=== PATIENT | female | born 1990 ===

== ENCOUNTER 2022-02-11 14:15 | Outpatient (REF) | payer OTHER, SELFPAY ==
[2022-02-11 16:52] LABS: MANUAL DIFF FLAG NO
[2022-02-11 16:55] LABS: Basophils Percent Auto 0.3 % (0-2); Eosinophils Absolute Auto 0.1 X10*3/uL (0.0-0.4); Hematocrit 39.7 % (37.0-47.0); Hemoglobin 13.2 g/dl (12.0-16.0); Imm Gran Abs Auto 0.03 X10*3/uL (0.00-0.03); Imm Gran Pct Auto 0.3 % (0.0-0.4); Lymphocytes Absolute Auto 2.1 X10*3/uL (1.2-4.9); Lymphocytes Percent Auto 22.7 % (20-40); Mean Corpuscular HGB Conc 33.2 g/dl (31.0-35.0); Mean Corpuscular Hemoglobin 27.6 pg (27.0-33.0); Mean Corpuscular Volume 82.9 fL (80.0-98.0); Mean Platelet Volume 10.6 fL (9.4-12.3); Monocytes Absolute Auto 0.5 X10*3/uL (0.1-1.2); Monocytes Percent Auto 5.6 % (2-11); Neutrophils Absolute Auto 6.6 x10*3/uL (2.0-8.3); Neutrophils Percent Auto 70.1 % (45-73); Platelet Count 238 X10*3/uL (160-400); Red Blood Count 4.79 X10*6/uL (4.20-5.50); White Blood Count 9.4 X10*3/uL (4.8-10.8)
[2022-02-11 17:27] LABS: Troponin-I High Sensitivity < 3.5 ng/L (<3.5-17.0)
[2022-02-11 17:45] LABS: Alanine Aminotransferase 13 U/L (0-31); Albumin Level 3.9 g/dL (3.5-5.0); Alkaline Phosphatase 60 U/L (39-117); Anion Gap 13 (12-20); Aspartate Amino Transferase 12 U/L (5-31); Bilirubin Total 0.2 mg/dL (0.0-1.0); Blood Urea Nitrogen 7 mg/dL (9-16); Calcium 9.4 mg/dL (8.4-10.2); Carbon Dioxide 22 mmol/L (22-29); Chloride 104 mmol/L (96-108); Estimated Glomerular Filt Rate > 60; Glucose Random 93 mg/dL (60-115); Sodium 135 mmol/L (135-145)
[2022-02-11 18:06] LABS: TSH reflex Free T4 0.57 uIU/mL (0.32-4.0); Vitamin D 25-OH Total 24.3 ng/mL (>30)
== END 2022-02-11 14:16 | disposition home or self-care (01) ==
LOC: HO.HMGCLDS 14:15
PROVIDERS: PCP Internal Medicine; Visit Provider Internal Medicine
DX: O99.210 Obesity complicating pregnancy, unspecified trimester (principal); E66.09 Other obesity due to excess calories; O26.899 Other specified pregnancy related conditions, unspecified trimester; R07.89 Other chest pain; Z3A.00 Weeks of gestation of pregnancy not specified; Z76.89 Persons encountering health services in other specified circumstances
CPT/HCPCS: 36415; 80053; 82306; 84443; 84484; 85025

== ENCOUNTER → 2022-02-18 13:38 | Outpatient (REF) | payer OTHER, SELFPAY ==
--- NOTE | 2022-02-18 13:41 | ECG_ITS ---
Hook-up date: 2022-02-18 12:59:00 Duration: 47:09:00 Test Indications: PVC'S Medications: 408520 QRS complexes 4592 Ventricular ectopics which represent 3 % of total QRS comp. * Supraventricular ectopics which represent % of total QRS comp. * Paced QRS complexs which represent % of total QRS comp. VENTRICULAR ECTOPY 4592 Isolated 0 Bigeminal Cycles 0 Couplets 0 Runs 0 Beats in Runs * Beats LONGEST at * BPM at :: -- * Beats FASTEST at * BPM at :: -- SUPRAVENTRICULAR ECTOPY * Isolated * Couplets * Runs * Beats in Runs * Beats LONGEST at * BPM at :: -- * Beats FASTEST at * BPM at :: -- HEART RATES 61 MIN at 02:01:22 2022-02-19 99 AVG 142 MAX at 13:30:56 2022-02-18 LONGEST RR 1.3200 secs at 05:57:51 2022-02-19 S-T LEVELS Channel 1 - 128 mm at 12:59:00 2022-02-18 - 128 mm at 12:59:00 2022-02-18 Channel 2 - 128 mm at 12:59:00 2022-02-18 - 128 mm at 12:59:00 2022-02-18 Channel 3 - 128 mm at 03:21:81 -- - 128 mm at 03:21:81 Basic rhythm Normal sinus rhythm No long pause or profound bradycardia Frequent Sinus tachycardia , 42% of time HR > 100 bpm Frequent Premature ventricular complexes , 3% of total beats Patient did not report any symptoms in the diary Referred By: Abdoul Nam Overread By: FABIAN GILMORE MD
== END ==
LOC: HO.CARD 13:38
PROVIDERS: PCP Internal Medicine; Visit Provider Internal Medicine
DX: I49.3 Ventricular premature depolarization (principal); R07.89 Other chest pain
CPT/HCPCS: 93225; 93226

== ENCOUNTER → 2022-05-14 14:01 | Outpatient (BNVA) | payer OTHER, SELFPAY | PROVIDERS: PCP Internal Medicine; Referring Provider Internal Medicine; Visit Provider Internal Medicine | DX: O99.412 Diseases of the circulatory system complicating pregnancy, second trimester (principal); I49.3 Ventricular premature depolarization; R00.0 Tachycardia, unspecified; R07.89 Other chest pain; Z3A.23 23 weeks gestation of pregnancy | CPT/HCPCS: 93005; 99202 ==

== ENCOUNTER → 2022-05-20 09:33 | Outpatient (REF) | payer OTHER, SELFPAY ==
--- NOTE | 2022-05-20 09:35 | CA_ITS ---
Transthoracic Echocardiogram Patient (Last, First, Middle): Millie Calvin, Gender: Female Date of : 1990 Age: 31 Procedure Date: 05/20/2022 Procedure Type: Transthoracic Echocardiogram Location: OP Height: 154.94 cm Weight: 107.5 kg BSA: 2.03 m2 Heart Rate: bpm BP: 105 / 60 mmHg Timber Setter: TO/VH Referring MD: Ranjeet Landrum MD Pewter Caster: Jer Schmid MD Symptoms: I49.3 - Ventricular premature depolarization Study Quality: Fair ECG Rhythm: Sinus tachycardia with extra beats Conclusions: - Normal study Findings Left Ventricle Normal left ventricular size, thickness, and systolic function. The visually estimated ejection fraction is between 60-65%. Diastolic function is normal for age. Right Ventricle Normal right ventricular cavity size and systolic function. Atria Both atria are normal in size. There is no evidence of interatrial shunt. Aortic Valve Normal aortic valve structure and function. There is no aortic valve stenosis. There is no aortic valve regurgitation. Mitral Valve Normal mitral valve structure and function. There is trace mitral valve regurgitation. There is no mitral valve stenosis. Pulmonic Valve The pulmonic valve is likely normal. There is trace pulmonic valve regurgitation. Tricuspid Valve Normal tricuspid valve structure. There is trace tricuspid valve regurgitation. The right ventricular systolic pressure is normal. The right ventricular systolic pressure is 19 mmHg. Normal right atrial pressure. There is no evidence of pulmonary hypertension. Great Vessels All visible segments of the aorta are normal in size. The pulmonary artery was not well visualized. Venous The inferior vena cava is normal in size and collapses greater than 50% with inspiration. Pericardium/Pleural There is no evidence of pericardial effusion. Prior Study Comparison No prior study available for comparison. Measurements 2D Linear Measurements IVSd: 1.04 0.6-0.9/0.6-1.0 cm LVIDd: 3.90 3.9-5.3/4.2-5.9 cm LVIDd Index: 1.92 2.4-3.2/2.2-3.1 cm/m2 LVIDs: 2.33 2.0-3.6 cm LVPWd: 0.87 0.7-1.1 cm LA Diam: 3.50 2.7-3.8/3.0-4.0 cm LAIDs Index: 1.72 1.5-2.3 cm/m2 LV Mass: 141.96 67-162/88-224 g LV Mass Index: 69.93 43-95/49-115 g/m2 LVOT Diam: 2.00 3.0+(-)1.3 cm 2D Systolic Function EF 4C: 56.80 >55% EF 2C: 55.50 >55% Mitral Valve MV Pk E: 0.69 MV PK A: 0.55 MV Decel Time: 133.00 E/A: 1.20 E'Lateral: 12.10 E'Medial: 8.27 E/E' Med: 8.30 E/E' Lat: 5.70 PHT: 39.00 MVA PHT: 5.64 Decel Labette: 5.16 Aortic Valve AoV Pk Oneal: 1.64 AoV Mn Oneal: 1.15 AoV VTI: 0.29 AoV Pk Grad: 11.00 Aov Mn Grad: 6.00 ELISE Cont.VTI: 1.96 LVOT LVOT Pk Oneal: 0.96 LVOT Mn Oneal: 0.69 LVOT VTI: 0.18 LVOT Pk Grad: 4.00 LVOT Mn Grad: 2.00 LVOT Diam: 2.00 LVOT Area: 3.14 Diastolic Function MV Pk E: 0.69 MV Pk A: 0.55 E/A: 1.20 E'Medial: 8.27 E/E' Med: 8.30 E' Laterial: 12.10 E/E' Lat: 5.70 Right Ventricle TAPSE (mm): 26.00 TVS' Oneal: 13.00 Tricuspid Valve TR Pk Oneal: 2.00 TR Pk Grad: 16.00 RA Press: 3.00 RVSP: 19.00 Great Vessels Aorta Sinus of Valsalva: 2.78 2.0-3.5 cm Ao Asc: 2.60 2.1-3.4 cm Updated in Other Vendor System with Status of Final Jer Schmid MD electronically signed on 05/21/2022 4:30:05 PM with status of Final
== END ==
LOC: HO.CARD 09:33
PROVIDERS: Visit Provider Internal Medicine
DX: R07.89 Other chest pain (principal); R00.0 Tachycardia, unspecified; I49.3 Ventricular premature depolarization
CPT/HCPCS: 93306; Q9957

== ENCOUNTER → 2022-06-25 13:46 | Outpatient (BNVA) | payer OTHER, SELFPAY | PROVIDERS: PCP Internal Medicine; Referring Provider Internal Medicine; Visit Provider Nurse Practitioner Family | DX: O99.419 Diseases of the circulatory system complicating pregnancy, unspecified trimester (principal); R00.0 Tachycardia, unspecified; I49.3 Ventricular premature depolarization | CPT/HCPCS: 99212 ==

== ENCOUNTER 2023-02-23 15:28 | Outpatient (AMB) | payer OTHER, SELFPAY ==
[2023-02-23 15:34] VITALS: BP 108/66; BMI 43.3
--- NOTE | 2023-02-23 15:34 | MHC.PC.OV ---
Vital Signs 02/23/23 15:34 Height 5 ft 2 in Weight 236 lb 8 oz BMI 43.3 BP 108/66 Blood Pressure Location Rt brachial Position Sitting Intake Visit Reasons: annual PE Allergies No Known Allergies Allergy (Verified 02/23/23 15:35) Medication List - Last Reconciled 02/23/23 by Abdoul Nam MD No Known Home Meds Tobacco use date assessed: 02/23/23 Dental Screening Dental Screen Date: 02/23/23 Did you have a dental visit in the last 12 months?: No Did you have a dental problem in the last 6 months where you did not have access to dental care?: No Was dental information given to patient?: No HPI annual PE HPI Details Patient is 32-year-old female came in for physical exam Patient is concerned about soreness she is feeling in her left breast off and on She is requesting a mammogram I explain to the patient the mammogram is usually ordered if we find a lump , the soreness that she is feeling off and on can also be related to hormonal changes due to her menstrual cycle monthly. However I have ordered the mammogram as patient is very concerned. She does not have any family history of breast cancer in first-degree relative however she says that her mother did had a lump removed and then after that she was fine but she does not know if it was benign or cancerous. Patient is morbidly obese with a BMI of 43.3 she has an appointment coming up with the bariatric weight loss program [facility]. I have ordered labs for the patient to be done fasting. Patient speaks Hungarian translation was provided with the help of a staff member. [facility] Family History Mother No problems noted. Father No problems noted. Social History Housing: House Patient Tobacco Use Status: Never used Tobacco e-Cigarette/Vaping Use: Never Used service: No Current occupational status: unemployed Cognitive needs: No Hearing needs: No Vision needs: No Questionnaire PHQ-9 Over the last 2 weeks, how often have you been bothered by any of the following problems? 1. Little interest or pleasure in doing things: not at all 2. Feeling down, depressed, or hopeless: not at all 3. Trouble falling or staying asleep, or sleeping too much: not at all 4. Feeling tired or having little energy: several days 5. Poor appetite or overeating: not at all 6. Feeling bad about yourself - or that you are a failure or have let yourself or your family down: not at all 7. Trouble concentrating on things, such as reading the newspaper or watching television: several days 8. Moving or speaking so slowly that other people could have noticed. Or the opposite - being so fidgety or restless that you have been moving around a lot more than usual: not at all 9. Thoughts that you would be better off or of hurting yourself in some way: not at all Total score: 2 Depression Screening Interpretation: Negative 70442 - PHQ-9 Billing: Yes Source: Developed by Drs. Darrel Addison, Katarina Peguero, Wilber Casillas and colleagues, with an educational aditya from [employer]. Thrive Questionnaire Date Thrive assessed: 02/23/23 I am a: Patient What is your living situation today?: I have a steady place to live Within the past 12 months, did the food you bought not last and you didn't have the money to get more?: Never true Within the past 12 months, did you worry whether your food would run out before you got money to buy more?: Never true Do you have trouble paying for medicines?: No Do you have trouble getting transportation to medical appointments?: No Do you have trouble paying your heating and electricity bill?: No Do you have trouble taking care of your child, family member or friend?: No Do you have trouble with day-to-day activities such as bathing, preparing meals, shopping, managing finances, etc.?: Yes Are you currently unemployed and looking for a job?: Yes Are you interested in more education?: Yes AUDIT C Alcohol Use Questionnaire (AUDIT-C) 1. How often do you have a drink containing alcohol?: Never 3. How often do you have six or more drinks on one occasion?: Never Total Score: 0 Score Reviewed/Action Taken: Yes FABIAN-7 AMB Questionnaire FABIAN-7 Date FABIAN - 7 assessed: 02/23/23 Source: Developed by Drs. Darrel Addison, Wilber Spain and colleagues, with an educational aditya from [employer]. FABIAN-7 Assessment Billing FABIAN-7 Assessment Tool: pt declined-do not bill Review of Systems Const Denies chills, Denies fever(s) and Denies headache(s) Eyes Denies blurry vision ENT Denies headache(s), Denies nasal discharge, Denies nasal obstruction, Denies odynophagia and Denies sinus pain Card Denies chest pain at rest and Denies chest pain with activity Resp Denies cough and Denies hemoptysis GI Denies diarrhea, Denies odynophagia, Denies vomiting and Denies hematemesis Reports as per HPI Musc Denies abnormal gait Skin/Breast Reports as per HPI Neuro Denies Neuro-related abnormal movements, Denies Abnormal speech present, Denies abnormal gait, Denies headache(s) and Denies Sensory deficit (Neuro) Psych Denies mood swings and Denies paranoia Endo Reports as per HPI Xavier/Lymph Reports as per HPI Aller/Immun Reports as per HPI Physical exam (Primary Care) Vital Signs: Last Vital Signs BP 108/66 02/23/23 15:34 BMI result Body Mass Index 43.3 Tobacco/Smoking Status: Tobacco use Status Tobacco use date assessed 02/23/23 02/23/23 15:37 Patient Tobacco Use Status Never used Tobacco 02/23/23 15:37 e-Cigarette/Vaping Use Never Used 02/23/23 15:37 Depression Screening Interpretation: Negative Thrive Assessment: Date of Thrive Assessment Date Thrive assessed 02/23/23 02/23/23 15:58 Const General: cooperative, comfortable and no acute distress Orientation/consciousness: patient oriented x3 HENMT Head: Yes normocephalic and Yes atraumatic Eyes General: appearance normal, both eyes and all related structures Pupils: Equal, round and reactive pupils present EOM: EOMs intact bilaterally Neck Neck: Yes supple and No lymphadenopathy Thyroid: Thyroid normal Lymphatic: no lymphadenopathy noted Chest Breast/axilla palpation: normal palpation of the breasts Resp Effort & Inspection: normal respiratory effort and able to speak in complete sentences Auscultation: clear to auscultation bilaterally Cardio Heart sounds: S1 normal heart sound present and S2 normal heart sound present GI Palpation (GI): Soft to palpation and nontender Auscultation: normal bowel sounds General: Yes no CVA tenderness Back/Spine/Pelvis Back: no CVA tenderness Skin General skin exam: elasticity normal and turgor normal Neuro General: patient oriented x3 and gait normal Cranial nerves: Yes Equal, round and reactive pupils present Speech: No Abnormal speech present Sensory Exam: No Sensory deficit (Neuro) Coordination: tandem gait normal and Romberg test negative Extrem General: Yes normal exam except as noted and No edema Assessment and Plan Assessment & Plan (1) Encounter for general adult medical examination with abnormal findings: Code(s): Z00.01 - Encounter for general adult medical examination with abnormal findings (2) Morbid obesity due to excess calories: Code(s): E66.01 - Morbid (severe) obesity due to excess calories (3) Soreness breast: Code(s): N64.4 - Mastodynia Plan Patient is 32-year-old female came in for physical exam Patient is concerned about soreness she is feeling in her left breast off and on She is requesting a mammogram I explain to the patient the mammogram is usually ordered if we find a lump , the soreness that she is feeling off and on can also be related to hormonal changes due to her menstrual cycle monthly. However I have ordered the mammogram as patient is very concerned. She does not have any family history of breast cancer in first-degree relative however she says that her mother did had a lump removed and then after that she was fine but she does not know if it was benign or cancerous. Patient is morbidly obese with a BMI of 43.3 she has an appointment coming up with the bariatric weight loss program [facility]. I have ordered labs for the patient to be done fasting. Patient speaks Hungarian translation was provided with the help of a staff member. Orders: Orders Comprehensive [place]. Panel Fast Today E66.01 - Morbid (severe) obesity due to excess calories, Z00.01 - Encounter for general adult medical examination with abnormal findings Lipid Panel Today E66.01 - Morbid (severe) obesity due to excess calories, Z00.01 - Encounter for general adult medical examination with abnormal findings TSH reflex Free T4 Today E66.01 - Morbid (severe) obesity due to excess calories, Z00.01 - Encounter for general adult medical examination with abnormal findings Complete Blood Count Auto Diff Today E66.01 - Morbid (severe) obesity due to excess calories, Z00.01 - Encounter for general adult medical examination with abnormal findings MM tomosynthesis screening BI Today N64.4 - Mastodynia MM tomosynthesis diagnostic LT Today N64.4 - Mastodynia Coding Level of Care Code Est Pt Prev Care 18-39y(64230) Diagnoses Encounter for general adult medical examination with abnormal findings Z00.01 Morbid obesity due to excess calories E66.01 Soreness breast N64.4
== END 2023-02-23 15:58 | disposition home or self-care (01) ==
PROVIDERS: PCP Internal Medicine; Visit Provider Internal Medicine
DX: Z00.01 Encounter for general adult medical examination with abnormal findings (principal); E66.01 Morbid (severe) obesity due to excess calories; N64.4 Mastodynia; Z68.41 Body mass index [BMI] 40.0-44.9, adult
CPT/HCPCS: 99395

== ENCOUNTER 2023-03-24 13:01 | Outpatient (REF) | payer OTHER, SELFPAY ==
--- NOTE | ~2023-03-24 | US_ITS ---
EXAMINATION: MM DIAGNOSTIC DIGITAL BREAST TOMOSYNTHESIS, BILATERAL US BREAST LIMITED, LEFT MAMMOGRAPHY: CLINICAL INFORMATION: Mastodynia, left breast pain and soreness, on ofttimes 1 year. Baseline mammography. COMPARISON: Mammography: None. Baseline examination. TECHNIQUE: Digital breast tomosynthesis is performed in both the craniocaudal and mediolateral oblique views along with computer-aided detection (CAD). Synthesized 2D images are generated from the tomosynthesis. FINDINGS: There are scattered areas of fibroglandular density (ACR BI-RADS breast composition Category b). There are no significant masses, abnormal calcifications, or other abnormalities within the right breast. Within the left breast, there is an oval mass in the approximate 2:00 axis, 12 cm from the nipple, which persists on diagnostic views. This will be evaluated by ultrasound. No skin or axillary abnormalities. ULTRASOUND: CLINICAL INFORMATION: Evaluate mass seen 2:00 left breast, 12 cm from the nipple. COMPARISON: No prior ultrasound. Mammogram performed same day. TECHNIQUE: Targeted sonographic evaluation of the LEFT breast was performed using a high frequency linear transducer. Attention was paid to the upper outer quadrant of the left breast. Selected archived documentation. FINDINGS: LEFT BREAST: Within the 2:00 axis of the LEFT breast, 12 cm from the nipple, there is a hypoechoic oval somewhat macro lobular mass, measuring 1.5 x 0.9 x 1.1 cm. It is slightly taller than wide, demonstrates mild posterior acoustic attenuation, and no good through transmission. There is minimal vascularity internally on color Doppler interrogation. The surrounding fat appears mildly echogenic and there is a possibility of minimal parenchymal distortion. Finding is suspicious and ultrasound-guided biopsy recommended. There is otherwise no additional mass, cystic abnormality, abnormal shadowing, or edema within the soft tissue planes. US/US breast LT limited mamm only IMPRESSION: LEFT breast hypoechoic suspicious mass at the 2:00 axis, 12 cm from the nipple, for which ultrasound-guided biopsy is recommended. This measures 1.5 x 0.9 x 1.1 cm. No suspicious finding in the RIGHT breast. Findings and recommendations were discussed with the patient in detail. OVERALL ASSESSMENT: Mammography: BI-RADS 4 - Suspicious finding Ultrasound: BI-RADS 4 - Suspicious finding RECOMMENDATION: Biopsy recommended Results were discussed with the patient at time of visit.
== END 2023-03-24 13:02 | disposition home or self-care (01) ==
LOC: HO.MAMMO 13:01
PROVIDERS: Visit Provider Internal Medicine
DX: N64.4 Mastodynia (principal)
CPT/HCPCS: 76642; 77062; 77066

== ENCOUNTER → 2023-03-24 13:30 | Outpatient (BNV) | payer OTHER, SELFPAY | PROVIDERS: Visit Provider Radiology Diagnostic Radiology | DX: R92.2 Inconclusive mammogram (principal); D24.9 Benign neoplasm of unspecified breast | CPT/HCPCS: 76642; 77062; 77066 ==

== ENCOUNTER 2023-03-26 08:22 | Outpatient (AMB) | payer OTHER, SELFPAY ==
--- NOTE | 2023-03-26 08:25 | MHC.OFFVIS ---
Intake Vital Signs 03/26/23 08:37 Height 5 ft 2 in Weight 229 lb 11.547 oz BMI 42.0 BP 110/70 Blood Pressure Location Lt brachial Position Sitting Intake Visit Reasons: Lt breast US guided bx 3 o'clock Intake Note: Patient is seen in office for ultrasound guided biopsy consult of left breast 3 o'clock. Patient c/o: admits to discomfort on the left breast for a year, couple of weeks ago started experiencing pain Process Automation Engineer Required: Yes Process Automation Engineer Language: School Bus Technician Name: Breanna ONOFRE Information Interpreted: non-clinical & clinical Manager Of Health: Manager Of Health Present Accompanied by: Self / Same As Patient Allergies No Known Allergies Allergy (Verified 03/26/23 08:32) Medication List - Last Reconciled 03/26/23 by Celso Vega MD No Known Home Meds HPI HPI Comments History of Present Illness Details 32-year-old female patient presenting with complaints of pain in the left breast on and off, subsequently underwent a diagnostic mammogram and ultrasound which revealed a density in the left breast at the 3 o'clock position approximately 12 cm from the nipple. This was felt to be highly suspicious for malignancy and biopsy recommended. She is scheduled for an ultrasound-guided core biopsy later today at the [facility]. She denies a previous history of breast problems or breast surgery. Her family history is negative for breast cancer although her mother underwent a biopsy for benign lesion. She is and reports breast-feeding her children. [facility] Surgical History History of tubal ligation (01/2023) Family History Mother No problems noted. Father No problems noted. Social History Housing: House Patient Tobacco Use Status: Never used Tobacco e-Cigarette/Vaping Use: Never Used service: No Current occupational status: unemployed Cognitive needs: No Hearing needs: No Vision needs: No Female Reproductive History Menstrual Age of Menarche: 13 Date of last menstrual period: 03/01/23 Total pregnancies: 2 Review of Systems Const All systems reviewed & are unremarkable except as noted in HPI and below Denies chills, Denies fever(s), Denies headache(s), Denies poor appetite and Denies weakness ENT Denies headache(s) Card Denies chest pain, Denies irregular heart rhythm, Denies palpitations and Denies dyspnea Resp Denies cough, Denies excessive phlegm production and Denies dyspnea GI Denies abdominal pain, Denies bloating, Denies change in bowel habits, Denies constipation, Denies heartburn, Denies diarrhea, Denies nausea and Denies vomiting Denies urinary frequency and Denies nipple discharge Musc Denies back pain, Denies muscle weakness and Denies numbness Skin/Breast Denies breast skin changes, Reports breast pain, Denies breast mass, Denies changing lesions, Denies nipple discharge and Denies unusual bruising Neuro Denies headache(s), Denies numbness, Denies paresthesias and Denies weakness Psych Denies anxiety and Denies depression Endo Denies palpitations Xavier/Lymph Denies lymphadenopathy Physical Exam Const General: cooperative and no acute distress Nutritional Appearance: well nourished Orientation/consciousness: patient oriented x3 Limitations: no limitations HEENT Head: Yes normocephalic and Yes atraumatic Ears: hearing grossly normal bilaterally Chest Other: Left breast: No skin change, no nipple retraction, no nipple discharge, no palpable mass, no enlarged lymph nodes. Right breast: No skin change, no nipple retraction, no nipple discharge, faintly palpable nodule in the 3 o'clock position with increased fibrocystic change surrounding, no enlarged lymph nodes Resp Effort & Inspection: normal respiratory effort, no audible wheezes, no cough and no respiratory distress Cardio Jugular venous distension: no JVD GI Inspection: Yes normal to inspection Skin Other: Warm, dry, no rash Neuro General: patient oriented x3 Extrem General: Yes no clubbing, cyanosis or edema Assessment & Plan Assessment & Plan (1) Abnormal ultrasound of breast: Code(s): R92.8 - Other abnormal and inconclusive findings on diagnostic imaging of breast (2) Abnormal mammogram of left breast: Code(s): R92.8 - Other abnormal and inconclusive findings on diagnostic imaging of breast Plan 32-year-old female patient with complaints of pain in the left breast at the upper outer quadrant found to have an abnormal density in the left breast 3 o'clock position approximately 12 cm from the nipple on both mammogram and ultrasound. This was felt to be high suspicion for malignancy and biopsy recommended. She is scheduled for an ultrasound-guided core biopsy later today at the [facility]. Examination today does reveal a possible palpable mass in the upper outer quadrant to 3 o'clock position. This feels soft and mobile, perhaps a fibroadenoma. There are fibrocystic changes surrounding this in the upper outer quadrant. No palpable lymph nodes are appreciated. I recommended patient return in 1 week to review the pathology results and discuss treatment options. She expressed understanding and agrees with the plan. Orders: Orders US breast ndl core biopsy LT Today R92.8 - Other abnormal and inconclusive findings on diagnostic imaging of breast Coding Level of Care Code New Pt Level 4 (60730) Diagnoses Abnormal ultrasound of breast R92.8 Abnormal mammogram of left breast R92.8
[2023-03-26 08:37] VITALS: BP 110/70; BMI 42.0
== END 2023-03-26 08:57 | disposition home or self-care (01) ==
PROVIDERS: PCP Internal Medicine; Referring Provider Internal Medicine; Visit Provider Surgery
DX: R92.8 Other abnormal and inconclusive findings on diagnostic imaging of breast (principal)
CPT/HCPCS: 99204

== ENCOUNTER 2023-03-26 09:05 | Outpatient (REF) | payer OTHER, SELFPAY ==
--- NOTE | ~2023-03-26 | MM_ITS ---
PROCEDURE: US GUIDED BREAST BIOPSY, LEFT CLINICAL INFORMATION: Left breast mass, 2:00 axis, posterior depth seen on screening exam COMPARISON: Screening mammography 03/24/2023 with left breast ultrasound 03/24/2023. PROCEDURAL DETAILS: The details of the procedure, as well as the risks, benefits, and alternatives to the procedure were explained to the patient in detail and all of her questions were answered, after which written informed consent was obtained. Site and side were confirmed. Prior to the procedure, sonography revealed an oval, tolerated than wide, hypoechoic partially circumscribed mass 2:00 left breast 12 cm from the nipple, without through transmission, no posterior features, and no internal color Doppler signal. Mildly hyperechoic fat surrounding the abnormality. Finding is suspicious and biopsy was recommended. A time-out was performed, the lesion intended for biopsy was sonographically targeted, and the skin of the left breast was then cleansed, prepped and draped in the usual sterile fashion. Using sonographic guidance, sterile technique, and 1% lidocaine without epinephrine for local anesthesia, multiple (4) core biopsies were obtained through the targeted area with a 14G spring loaded Achieve core biopsy device. There was real-time confirmation of appropriate needle passage. Sampling was documented. At the completion of tissue sampling, a single open coil-shaped clip metallic clip was deposited at the biopsy site. There was no evidence of immediate complication. SPECIMEN: An appropriate sample was obtained with 4 core biopsies. DIGITAL POST-PROCEDURE MAMMOGRAPHY: Breast density: The tissue contains scattered areas of fibroglandular density. BI-RADS version 5, category B. There are no new mammographic findings demonstrated. The postprocedure 2-view direct digital mammogram reveals satisfactory and accurate positioning of the biopsy clip. No evidence of complication or hematoma. No evidence of clip migration. The patient tolerated the procedure well and, after assuring adequate hemostasis, was discharged in good condition after reviewing postbiopsy breast care instructions. Final pathology results are pending. MM/MM tomosynthesis diagnostic LT IMPRESSION: 1. No immediate complication from ultrasound-guided percutaneous biopsy left breast. 2. Ultrasound was used to localize and guide marker clip placement. 3. The 2-view direct digital postprocedure mammogram reveals satisfactory and accurate positioning of the biopsy clip. 4. Final pathology results are pending. A separate report with final recommendations will be issued once these results are made available.
== END 2023-03-26 09:06 | disposition home or self-care (01) ==
LOC: HO.MAMMO 09:05
PROVIDERS: PCP Internal Medicine; Visit Provider Surgery
DX: R92.8 Other abnormal and inconclusive findings on diagnostic imaging of breast (principal)
CPT/HCPCS: 19083; 77061; 77063; 77065; 77067; 88305; A4648

== ENCOUNTER → 2023-03-26 10:00 | Outpatient (BNV) | payer OTHER, SELFPAY | PROVIDERS: PCP Internal Medicine; Visit Provider Radiology Diagnostic Radiology | DX: D24.2 Benign neoplasm of left breast (principal) | CPT/HCPCS: 19083; 77065 ==

== ENCOUNTER 2023-04-02 11:15 | Outpatient (AMB) | payer OTHER, SELFPAY ==
[2023-04-02 11:19] VITALS: BP 112/72; BMI 42.3
--- NOTE | 2023-04-02 11:19 | A.OFFVIS_ITS ---
Intake Vital Signs 04/02/23 11:19 Height 5 ft 2 in Weight 231 lb 0.711 oz BMI 42.3 BP 112/72 Blood Pressure Location Lt brachial Position Sitting Intake Visit Reasons: us guided bx results, left breast 3o'clock mass Intake Note: Patient is seen in office for ultrasound guided bx results, left breast mass. Patient c/o: sore and tender Sales Representative Trainee Required: Yes Sales Representative Trainee Language: Pen Rider Name: Breanna ONOFRE Information Interpreted: non-clinical & clinical Extrusion Process Operator: Extrusion Process Operator Present Accompanied by: Self / Same As Patient Allergies No Known Allergies Allergy (Verified 04/02/23 11:25) Medication List - Last Reconciled 04/02/23 by Celso Vega MD No Known Home Meds HPI HPI Comments History of Present Illness Details 32-year-old female patient presenting wi th complaints of pain in the left breast on and off, subsequently underwent a diagnostic mammogram and ultrasound which revealed a density in the left breast at the 3 o'clock position approximately 12 cm from the nipple. This was felt to be highly suspicious for malignancy and biopsy recommended. She was scheduled for an ultrasound-guided core biopsy on 03/26/2023. She tolerated the procedure well and denies any ongoing breast symptoms. 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 A copy of the report was provided to the patient today. [facility] Surgical History History of tubal ligation (01/2023) Family History Mother No problems noted. Father No problems noted. Social History Housing: House Patient Tobacco Use Status: Never used Tobacco e-Cigarette/Vaping Use: Never Used service: No Current occupational status: unemployed Cognitive needs: No Hearing needs: No Vision needs: No Female Reproductive History Menstrual Age of Menarche: 13 Review of Systems Const All systems reviewed & are unremarkable except as noted in HPI and below Denies chills, Denies fever(s), Denies headache(s), Denies poor appetite and Denies weakness ENT Denies headache(s) Card Denies chest pain, Denies irregular heart rhythm, Denies palpitations and Denies dyspnea Resp Denies cough, Denies excessive phlegm production and Denies dyspnea GI Denies abdominal pain, Denies bloating, Denies change in bowel habits, Denies constipation, Denies heartburn, Denies diarrhea, Denies nausea and Denies vomiting Denies urinary frequency and Denies nipple discharge Musc Denies back pain, Denies muscle weakness and Denies numbness Skin/Breast Denies breast skin changes, Reports breast pain, Denies breast mass, Denies changing lesions, Denies nipple discharge and Denies unusual bruising Neuro Denies headache(s), Denies numbness, Denies paresthesias and Denies weakness Psych Denies anxiety and Denies depression Endo Denies palpitations Xavier/Lymph Denies lymphadenopathy Physical Exam Vital Signs: Last Vital Signs BP 112/72 04/02/23 11:19 BMI result Body Mass Index 42.3 Const General: cooperative and no acute distress Nutritional Appearance: well nourished Orientation/consciousness: patient oriented x3 Limitations: no limitations HEENT Head: Yes normocephalic and Yes atraumatic Ears: hearing grossly normal bilaterally Chest Other: Exam deferred Resp Effort & Inspection: normal respiratory effort, no audible wheezes, no cough and no respiratory distress Cardio Jugular venous distension: no JVD GI Inspection: Yes normal to inspection Skin Other: Warm, dry, no rash Neuro General: patient oriented x3 Extrem General: Yes no clubbing, cyanosis or edema Assessment & Plan Assessment & Plan (1) Abnormal ultrasound of breast: Code(s): R92.8 - Other abnormal and inconclusive findings on diagnostic imaging of breast (2) Abnormal mammogram of left breast: Code(s): R92.8 - Other abnormal and inconclusive findings on diagnostic imaging of breast Plan 32-year-old female patient presenting with complaints of left breast pain found on ultrasound and mammogram to have a suspicious density. Returns today following an ultrasound-guided core biopsy of this lesion. Pathology confirmed a fibroadenoma without evidence of atypia or malignancy. She tolerated the procedure well and her wounds are well healed. No further surgical intervention is required at this time. She is welcome to call for any new concerns. Coding Level of Care Code Est Pt Level 3 (18875) Diagnoses Abnormal ultrasound of breast R92.8 Abnormal mammogram of left breast R92.8
== END 2023-04-02 11:27 | disposition home or self-care (01) ==
PROVIDERS: PCP Internal Medicine; Visit Provider Surgery
DX: R92.8 Other abnormal and inconclusive findings on diagnostic imaging of breast (principal)
CPT/HCPCS: 99213

== ENCOUNTER → 2023-04-02 11:15 | Outpatient (BNVA) | payer OTHER, SELFPAY | PROVIDERS: PCP Internal Medicine; Visit Provider Surgery | DX: R92.8 Other abnormal and inconclusive findings on diagnostic imaging of breast (principal) | CPT/HCPCS: 99212 ==

== ENCOUNTER 2024-03-03 10:58 | Outpatient (AMB) | payer OTHER, SELFPAY ==
[2024-03-03 11:00] VITALS: BP 116/68; PULSE 93; O2SAT 99; BMI 43.8
--- NOTE | 2024-03-03 11:00 | A.OFFPC_ITS ---
Vital Signs 03/03/24 11:00 Height 5 ft 2 in Weight 239 lb 8 oz BMI 43.8 BP 116/68 Blood Pressure Location Lt brachial Position Sitting Pulse 93 Pulse Source Pulse Oximeter Pulse Oximetry (%) 99 Oxygen Delivery Method Room Air Intake Visit Reasons: annual PE- NEEDS PHQ9 +THRIVE Allergies No Known Allergies Allergy (Verified 03/03/24 11:03) Medication List - Last Reconciled 03/03/24 by Abdoul Nam MD No Known Home Meds Tobacco use date assessed: 03/03/24 Dental Screening Dental Screen Date: 03/03/24 Did you have a dental visit in the last 12 months?: Yes Did you have a dental problem in the last 6 months where you did not have access to dental care?: No Was dental information given to patient?: Patient has dentist HPI annual PE- NEEDS PHQ9 +THRIVE HPI Details Patient is a 33-year-old female came in for physical exam Patient is complaining of throat irritation off and on for a while There is no fever no chills no cough no postnasal drip Patient is morbidly obese with BMI of 43.8 Currently she is seeing weight loss program [facility] She is waiting for approval for surgery. OBGYN visit was 2 weeks ago at [facility] Lab order placed to be done fasting I am prescribing omeprazole 20 mg to be taken on empty stomach at night We will set up a telemedicine visit in 2 months to see how her throat irritation is with medication. Physical exam 1 year [facility] Surgical History History of tubal ligation (01/2023) Family History Mother No problems noted. Father No problems noted. Social History Housing: House Patient Tobacco Use Status: Never used Tobacco e-Cigarette/Vaping Use: Never Used service: No Current occupational status: unemployed Cognitive needs: No Hearing needs: No Vision needs: No Female Reproductive History Menstrual Age of Menarche: 13 Questionnaire PHQ-9 Over the last 2 weeks, how often have you been bothered by any of the following problems? 1. Little interest or pleasure in doing things: not at all 2. Feeling down, depressed, or hopeless: not at all 3. Trouble falling or staying asleep, or sleeping too much: not at all 4. Feeling tired or having little energy: several days 5. Poor appetite or overeating: several days 6. Feeling bad about yourself - or that you are a failure or have let yourself or your family down: several days 7. Trouble concentrating on things, such as reading the newspaper or watching television: not at all 8. Moving or speaking so slowly that other people could have noticed. Or the opposite - being so fidgety or restless that you have been moving around a lot more than usual: not at all 9. Thoughts that you would be better off or of hurting yourself in some way: not at all Total score: 3 Depression Screening Interpretation: Negative Depression Screening Done: Yes 86662 - PHQ-9 Billing: Yes Source: Developed by Drs. Darrel Addison, Katarina Peguero, Wilber Casillas and colleagues, with an educational aditya from [employer]. Thrive Questionnaire Date Thrive assessed: 03/03/24 I am a: Patient What is your living situation today?: I have a steady place to live Within the past 12 months, did the food you bought not last and you didn't have the money to get more?: Never true Within the past 12 months, did you worry whether your food would run out before you got money to buy more?: Never true Do you have trouble paying for medicines?: No Do you have trouble getting transportation to medical appointments?: No Do you have trouble paying your heating and electricity bill?: No Do you have trouble taking care of your child, family member or friend?: No Do you have trouble with day-to-day activities such as bathing, preparing meals, shopping, managing finances, etc.?: No Are you currently unemployed and looking for a job?: Yes Are you interested in more education?: Yes Please select the resources that you would like help with: Housing/Skilled Nursing, Job search/training and Education Currently or been in a relationship where the following occur: No concerns reported THRIVE Score: 0 AUDIT C Alcohol Use Questionnaire (AUDIT-C) 1. How often do you have a drink containing alcohol?: Monthly or less 2. How many drinks containing alcohol do you have on a typical day when you are drinking?: 1 or 2 3. How often do you have six or more drinks on one occasion?: Never Total Score: 1 Score Reviewed/Action Taken: Yes FABIAN-7 AMB Questionnaire FABIAN-7 Date FABIAN - 7 assessed: 03/03/24 Feeling nervous, anxious, or on edge: 0 = Not at all Not being able to stop or control worryin = Not at all Worrying too much about different things: 0 = Not at all Trouble relaxin = Not at all Being so restless that it is hard to sit still: 0 = Not at all Becoming easily annoyed or irritable: 0 = Not at all Feeling afraid as if something awful might happen: 0 = Not at all Total FABIAN-7 score (0-4 normal; 5-9 mild; 10-14 moderate; 15-21 severe): 0 Source: Developed by Drs. Darrel Addison, Katarina Peguero, Wilber Casillas and colleagues, with an educational aditya from [employer]. FABIAN-7 Assessment Billing FABIAN-7 Assessment Tool: FABIAN-7 Assessment 15144 Review of Systems Const Denies chills, Denies fever(s) and Denies headache(s) Eyes Denies blurry vision ENT Denies headache(s), Denies nasal discharge, Denies nasal obstruction and Denies sinus pain Card Denies chest pain at rest and Denies chest pain with activity Resp Denies cough and Denies hemoptysis GI Denies diarrhea, Denies vomiting and Denies hematemesis Reports as per HPI Musc Denies abnormal gait Skin/Breast Reports as per HPI Neuro Denies Neuro-related abnormal movements, Denies Abnormal speech present, Denies abnormal gait, Denies headache(s) and Denies Sensory deficit (Neuro) Psych Denies mood swings and Denies paranoia Endo Reports as per HPI Xavier/Lymph Reports as per HPI Aller/Immun Reports as per HPI Physical exam (Primary Care) Vital Signs: Last Vital Signs Pulse 93 03/03/24 11:00 BP 116/68 03/03/24 11:00 Pulse Ox 99 03/03/24 11:00 Oxygen Delivery Method Room Air 03/03/24 11:00 BMI result Body Mass Index 43.8 Tobacco/Smoking Status: Tobacco use Status Tobacco use date assessed 03/03/24 03/03/24 11:03 Patient Tobacco Use Status Never used Tobacco 03/03/24 11:00 e-Cigarette/Vaping Use Never Used 03/03/24 11:00 PHQ-9: PHQ-9 Score PHQ-9: Total score 3 03/03/24 11:03 Depression Screening Interpretation: Negative Thrive Assessment: Date of Thrive Assessment Date Thrive assessed 03/03/24 03/03/24 11:03 Currently or been in a relationship where the following occur: No concerns reported Const General: cooperative, comfortable and no acute distress Orientation/consciousness: patient oriented x3 HENMT Head: Yes normocephalic and Yes atraumatic Eyes General: appearance normal, both eyes and all related structures Pupils: Equal, round and reactive pupils present EOM: EOMs intact bilaterally Neck Neck: Yes supple and No lymphadenopathy Thyroid: Thyroid normal Lymphatic: no lymphadenopathy noted Chest Breast/axilla palpation: normal palpation of the breasts Resp Effort & Inspection: normal respiratory effort and able to speak in complete sentences Auscultation: clear to auscultation bilaterally Cardio Heart sounds: S1 normal heart sound present and S2 normal heart sound present GI Palpation (GI): Soft to palpation and nontender Auscultation: normal bowel sounds General: Yes no CVA tenderness Back/Spine/Pelvis Back: no CVA tenderness Skin General skin exam: elasticity normal and turgor normal Neuro General: patient oriented x3 and gait normal Cranial nerves: Yes Equal, round and reactive pupils present Speech: No Abnormal speech present Sensory Exam: No Sensory deficit (Neuro) Coordination: tandem gait normal and Romberg test negative Extrem General: Yes normal exam except as noted and No edema Assessment and Plan Assessment & Plan (1) Encounter for general adult medical examination with abnormal findings: Code(s): Z00.01 - Encounter for general adult medical examination with abnormal findings (2) Throat irritation: Code(s): J39.2 - Other diseases of pharynx (3) Morbid obesity due to excess calories: Code(s): E66.01 - Morbid (severe) obesity due to excess calories Plan Patient is a 33-year-old female came in for physical exam Patient is complaining of throat irritation off and on for a while There is no fever no chills no cough no postnasal drip Patient is morbidly obese with BMI of 43.8 Currently she is seeing weight loss program [facility] She is waiting for approval for surgery. OBGYN visit was 2 weeks ago at [facility] Lab order placed to be done fasting I am prescribing omeprazole 20 mg to be taken on empty stomach at night We will set up a telemedicine visit in 2 months to see how her throat irritation is with medication. Physical exam 1 year Orders: Orders Comprehensive Benld. Panel Fast Today E66.01 - Morbid (severe) obesity due to excess calories, Z00.01 - Encounter for general adult medical examination with abnormal findings Lipid Panel Today E66.01 - Morbid (severe) obesity due to excess calories, Z 00.01 - Encounter for general adult medical examination with abnormal findings Complete Blood Count Auto Diff Today E66.01 - Morbid (severe) obesity due to excess calories, Z00.01 - Encounter for general adult medical examination with abnormal findings TSH reflex Free T4 Today E66.01 - Morbid (severe) obesity due to excess calories, Z00.01 - Encounter for general adult medical examination with abnormal findings Vitamin D 25-OH (D2 and D3) Today E66.01 - Morbid (severe) obesity due to excess calories, Z00.01 - Encounter for general adult medical examination with abnormal findings Medications: New omeprazole Take at night on empty stomach 20 mg PO DAILY 90 caps 0RF Coding Level of Care Code Est Pt Level 3 (17900) Est Pt Prev Care 18-39y(02986) Diagnoses Encounter for general adult medical examination with abnormal findings Z00.01 Throat irritation J39.2 Morbid obesity due to excess calories E66.01 Additional Codes FABIAN-7 Assessment Billing - FABIAN-7 Assessment Tool: FABIAN-7 Assessment 88101 ([id number])
== END 2024-03-03 11:24 | disposition home or self-care (01) ==
PROVIDERS: PCP Internal Medicine; Visit Provider Internal Medicine
DX: Z00.01 Encounter for general adult medical examination with abnormal findings (principal); J39.2 Other diseases of pharynx; E66.01 Morbid (severe) obesity due to excess calories; Z68.41 Body mass index [BMI] 40.0-44.9, adult
CPT/HCPCS: 99213; 99395

== ENCOUNTER 2024-03-17 08:54 | Outpatient (REF) | payer OTHER, SELFPAY ==
[2024-03-17 10:25] LABS: MANUAL DIFF FLAG NO
[2024-03-17 10:35] LABS: Basophils Percent Auto 0.4 % (0-2); Eosinophils Absolute Auto 0.1 X10*3/uL (0.0-0.4); Hematocrit 42.4 % (37.0-47.0); Hemoglobin 13.7 g/dl (12.0-16.0); Imm Gran Abs Auto 0.01 X10*3/uL (0.00-0.03); Imm Gran Pct Auto 0.1 % (0.0-0.4); Lymphocytes Absolute Auto 1.9 X10*3/uL (1.2-4.9); Lymphocytes Percent Auto 28.1 % (20-40); Mean Corpuscular HGB Conc 32.3 g/dl (31.0-35.0); Mean Corpuscular Hemoglobin 26.8 pg (27.0-33.0); Mean Platelet Volume 10.5 fL (9.4-12.3); Monocytes Absolute Auto 0.4 X10*3/uL (0.1-1.2); Monocytes Percent Auto 5.4 % (2-11); Neutrophils Absolute Auto 4.4 x10*3/uL (2.0-8.3); Platelet Count 213 X10*3/uL (160-400); Red Blood Count 5.11 X10*6/uL (4.20-5.50); Red Cell Distribution Width 13.5 % (11.0-16.0); White Blood Count 6.9 X10*3/uL (4.8-10.8)
[2024-03-17 10:58] LABS: Alanine Aminotransferase 15 U/L (0-31); Alkaline Phosphatase 67 U/L (39-117); Anion Gap 10 (12-20); Aspartate Amino Transferase 15 U/L (5-31); Bilirubin Total 0.4 mg/dL (0.0-1.0); Blood Urea Nitrogen 11 mg/dL (9-16); Calcium 9.3 mg/dL (8.4-10.2); Carbon Dioxide 26 mmol/L (22-29); Chloride 107 mmol/L (96-108); Cholesterol 190 mg/dL (<200); Estimated Glomerular Filt Rate > 60; Glucose Fasting 92 mg/dL (60-99); HDL Cholesterol 30 mg/dL (>40); LDL Cholesterol Calculated 120 mg/dL (<100); Potassium 4.4 mmol/L (3.3-5.1); Sodium 139 mmol/L (135-145); Total Protein 7.2 g/dL (6.5-8.0); Triglycerides 204 mg/dL (<150)
[2024-03-17 11:14] LABS: TSH reflex Free T4 1.26 uIU/mL (0.32-4.0)
[2024-03-22 16:44] LABS: Vitamin D 25-OH, D2 <4 ng/mL; Vitamin D 25-OH, D3 23 ng/mL; Vitamin D 25-OH, Total 23 ng/mL (30-100)
== END 2024-03-17 08:55 | disposition home or self-care (01) ==
LOC: HO.HMGCLDS 08:54
PROVIDERS: PCP Internal Medicine; Visit Provider Internal Medicine
DX: Z00.01 Encounter for general adult medical examination with abnormal findings (principal); E66.01 Morbid (severe) obesity due to excess calories
CPT/HCPCS: 36415; 80053; 80061; 82306; 84443; 85025

== ENCOUNTER 2024-05-26 08:54 | Outpatient (AMB) | payer OTHER, SELFPAY ==
[2024-05-26 08:57] VITALS: BP 112/62; PULSE 91; O2SAT 99; BMI 40.0
--- NOTE | 2024-05-26 08:57 | MHC.PC.OV ---
Vital Signs 05/26/24 08:57 Height 5 ft 2 in Weight 218 lb 8 oz BMI 40.0 BP 112/62 Blood Pressure Location Lt brachial Position Sitting Pulse 91 Pulse Source Pulse Oximeter Pulse Oximetry (%) 99 Oxygen Delivery Method Room Air Intake Visit Reasons: 2 months f/up Allergies No Known Allergies Allergy (Verified 05/26/24 08:57) Medication List - Last Reconciled 05/26/24 by Abdoul Nam MD omeprazole 20 mg PO DAILY Tobacco use date assessed: 05/26/24 Dental Screening Dental Screen Date: 05/26/24 Did you have a dental visit in the last 12 months?: Yes Did you have a dental problem in the last 6 months where you did not have access to dental care?: No Was dental information given to patient?: Patient has dentist HPI 2 months f/up HPI Details The patient presents with cough and phlegm, primarily concerned about an upper respiratory tract infection. And also to follow up from previous visit March 03 Problem list: Upper Respiratory Tract Infection - Bariatric Surgery (Post-operative Monitoring) 2 weeks ago - Vitamin D Deficiency - Polycystic Ovarian Syndrome GERD 33-year-old female with a history of polycystic ovarian syndrome (PCOS) and recent bariatric surgery presenting with concerns about an upper respiratory tract infection. The patient reports a cough with green phlegm for two days and no accompanying fever or chills. She was started on omeprazole 20 mg in February when she presented with a chief complaint throat irritation morning upon awakening Patient says that since she started the medication she started feeling better, but then she stopped and symptoms came back Physical examination suggests an upper respiratory tract infection. Additionally, the patient?s laboratory results indicate vitamin D deficiency. The patient is post-bariatric surgery and reports a weight loss of 16 pounds over two weeks. Current dietary intake includes soft and pureed foods as advised by her supervisor webbing. The patient continues to consult with her MAIL CLERK BILLS for PCOS, with symptoms including hair growth chin area, which have persisted. No thyroid dysfunction is indicated as the thyroid function tests returned to normal values. Instructions to patient: Continue antibiotic treatment as prescribed for the respiratory symptoms. - Take vitamin D supplements daily as directed. - Adhere to dietary guidelines focusing on soft foods to facilitate recovery post-bariatric surgery. - Monitor any changes in symptoms and report persistent or worsening conditions. - Schedule a follow-up appointment in three months to monitor ongoing treatment and health status. - Consult your MAIL CLERK BILLS regarding PCOS management and discuss possible ultrasound for ovarian reassessment. Continue omeprazole every night Follow-up 4 months [facility] Surgical History History of tubal ligation (01/2023) Family History Mother No problems noted. Father No problems noted. Social History Housing: House Patient Tobacco Use Status: Never used Tobacco e-Cigarette/Vaping Use: Never Used service: No Current occupational status: unemployed Cognitive needs: No Hearing needs: No Vision needs: No Female Reproductive History Menstrual Age of Menarche: 13 Questionnaire Thrive Questionnaire Date Thrive assessed: 05/26/24 I am a: Patient What is your living situation today?: I have a steady place to live Within the past 12 months, did the food you bought not last and you didn't have the money to get more?: Never true Within the past 12 months, did you worry whether your food would run out before you got money to buy more?: Never true Do you have trouble paying for medicines?: No Do you have trouble getting transportation to medical appointments?: No Do you have trouble paying your heating and electricity bill?: No Do you have trouble taking care of your child, family member or friend?: No Do you have trouble with day-to-day activities such as bathing, preparing meals, shopping, managing finances, etc.?: No Are you currently unemployed and looking for a job?: Yes Are you interested in more education?: Yes Currently or been in a relationship where the following occur: No concerns reported THRIVE Score: 0 AUDIT C Alcohol Use Questionnaire (AUDIT-C) 1. How often do you have a drink containing alcohol?: Monthly or less 2. How many drinks containing alcohol do you have on a typical day when you are drinking?: 1 or 2 3. How often do you have six or more drinks on one occasion?: Never Total Score: 1 Score Reviewed/Action Taken: Yes FABIAN-7 AMB Questionnaire FABIAN-7 Date FABIAN - 7 assessed: 03/03/24 Source: Developed by Drs. Darrel Addison, Katarina Peguero, Wilber Casillas and colleagues, with an educational aditya from [employer]. Review of Systems Const Denies chills and Denies fever(s) ENT Denies epistaxis and Denies nasal discharge Card Denies chest pain Resp Denies hemoptysis GI Denies diarrhea and Denies nausea Skin/Breast Denies rash Neuro Reports no additional complaints Psych Reports no additional complaints Endo Reports no additional complaints Physical exam (Primary Care) Vital Signs: Last Vital Signs Pulse 91 05/26/24 08:57 BP 112/62 05/26/24 08:57 Pulse Ox 99 05/26/24 08:57 Oxygen Delivery Method Room Air 05/26/24 08:57 BMI result Body Mass Index 40.0 Tobacco/Smoking Status: Tobacco use Status Tobacco use date assessed 05/26/24 05/26/24 09:00 Patient Tobacco Use Status Never used Tobacco 05/26/24 09:00 e-Cigarette/Vaping Use Never Used 05/26/24 09:00 Thrive Assessment: Date of Thrive Assessment Date Thrive assessed 05/26/24 05/26/24 09:00 Currently or been in a relationship where the following occur: No concerns reported Const General: cooperative, comfortable and no acute distress Orientation/consciousness: patient oriented x3 HENMT Other: Throat erythema noted without exudate, uvula midline Head: Yes normocephalic Eyes General: appearance normal, both eyes and all related structures Neck Neck: Yes supple Resp Effort & Inspection: normal respiratory effort, no cough and no stridor Cardio Rhythm: regular rhythm Heart sounds: S1 normal heart sound present and S2 normal heart sound present Skin General skin exam: turgor normal Neuro General: patient oriented x3, tone normal and moves all extremities Extrem Right lower extremity: no edema Left lower extremity: no edema Coding Level of Care Code Est Pt Level 4 (60742) Complex EM visit Add On G2211 Diagnoses Upper respiratory tract infection, unspecified type J06.9 URI type: unspecified URI Chronic GERD K21.9 Morbid obesity due to excess calories E66.01 Status post bariatric surgery Z98.84 Polycystic ovarian syndrome E28.2 Hirsutism L68.0 Assessment & Plan Assessment & Plan (1) Upper respiratory infection: Code(s): J06.9 - Acute upper respiratory infection, unspecified Category: Medical Qualifiers: URI type: unspecified URI Qualified Code(s): J06.9 - Acute upper respiratory infection, unspecified (2) Chronic GERD: Code(s): K21.9 - Gastro-esophageal reflux disease without esophagitis Category: Medical (3) Morbid obesity due to excess calories: Code(s): E66.01 - Morbid (severe) obesity due to excess calories Category: Medical (4) Status post bariatric surgery: Code(s): Z98.84 - Bariatric surgery status Category: Surgical (5) Polycystic ovarian syndrome: Code(s): E28.2 - Polycystic ovarian syndrome Category: Medical (6) Hirsutism: Code(s): L68.0 - Hirsutism Category: Medical Plan The patient presents with cough and phlegm, primarily concerned about an upper respiratory tract infection. And also to follow up from previous visit March 03 33-year-old female with a history of polycystic ovarian syndrome (PCOS) and recent bariatric surgery presenting with concerns about an upper respiratory tract infection. The patient reports a cough with green phlegm for two days and no accompanying fever or chills. She was started on omeprazole 20 mg in February when she presented with a chief complaint throat irritation morning upon awakening Patient says that since she started the medication she started feeling better, but then she stopped and symptoms came back Problem list: Upper Respiratory Tract Infection - Bariatric Surgery (Post-operative Monitoring) 2 weeks ago - Vitamin D Deficiency - Polycystic Ovarian Syndrome GERD Physical examination suggests an upper respiratory tract infection. Additionally, the patient?s laboratory results indicate vitamin D deficiency. The patient is post-bariatric surgery and reports a weight loss of 16 pounds over two weeks. Current dietary intake includes soft and pureed foods as advised by her supervisor webbing. The patient continues to consult with her MAIL CLERK [employer]ILLS for PCOS, with symptoms including hair growth chin area, which have persisted. No thyroid dysfunction is indicated as the thyroid function tests returned to normal values. Instructions to patient: Continue antibiotic treatment as prescribed for the respiratory symptoms. - Take vitamin D supplements daily as directed. - Adhere to dietary guidelines focusing on soft foods to facilitate recovery post-bariatric surgery. - Monitor any changes in symptoms and report persistent or worsening conditions. - Schedule a follow-up appointment in three months to monitor ongoing treatment and health status. - Consult your MAIL CLERK BILLS regarding PCOS management and discuss possible ultrasound for ovarian reassessment. Continue omeprazole every night Follow-up 4 months
== END 2024-05-26 09:14 | disposition home or self-care (01) ==
PROVIDERS: PCP Internal Medicine; Visit Provider Internal Medicine
DX: J06.9 Acute upper respiratory infection, unspecified (principal); K21.9 Gastro-esophageal reflux disease without esophagitis; E66.01 Morbid (severe) obesity due to excess calories; Z68.41 Body mass index [BMI] 40.0-44.9, adult; Z98.84 Bariatric surgery status; E28.2 Polycystic ovarian syndrome; L68.0 Hirsutism

== ENCOUNTER → 2024-05-26 08:54 | Outpatient (BNVA) | payer OTHER, SELFPAY | PROVIDERS: PCP Internal Medicine; Visit Provider Internal Medicine | DX: J06.9 Acute upper respiratory infection, unspecified (principal); K21.9 Gastro-esophageal reflux disease without esophagitis; E66.01 Morbid (severe) obesity due to excess calories; Z68.41 Body mass index [BMI] 40.0-44.9, adult; E28.2 Polycystic ovarian syndrome; L68.0 Hirsutism; Z98.84 Bariatric surgery status; Z71.3 Dietary counseling and surveillance | CPT/HCPCS: 99212 ==

== ENCOUNTER 2024-10-13 09:16 | Outpatient (AMB) | payer OTHER, SELFPAY ==
[2024-10-13 09:22] VITALS: BP 106/84; PULSE 84; RESP 18; O2SAT 99; BMI 34.6
--- NOTE | 2024-10-13 09:22 | MHC.PC.OV ---
Vital Signs 10/13/24 09:22 Height 5 ft 3 in Weight 195 lb 2 oz BMI 34.6 BP 106/84 Blood Pressure Location Lt brachial Position Sitting Respiration 18 Pulse 84 Pulse Source Pulse Oximeter Pulse Oximetry (%) 99 Oxygen Delivery Method Room Air Intake Visit Reasons: 3 Months follow up Allergies No Known Allergies Allergy (Verified 05/26/24 08:57) Medication List - Last Reconciled 10/13/24 by Abdoul Nam MD cholecalciferol (vitamin D3) 25 mcg PO DAILY 90 days omeprazole 20 mg PO DAILY Tobacco use date assessed: 05/26/24 Dental Screening Dental Screen Date: 05/26/24 HPI 3 Months follow up HPI Details History - The patient is a 33-year-old female presenting with symptoms related to viral upper respiratory infection. - Over the past week, the patient experienced symptoms indicative of a viral upper respiratory infection, characterized by a nocturnal dry cough and throat irritation. - The cough is described as improving gradually without the use of cough medication. - The patient has a history of GERD for which she is taking omeprazole daily. She occasionally forgets her dosage but reports only minor throat discomfort without significant reflux or heartburn recurrence. - She feels better as the week progresses, indicating recovery. Problem List - Gastroesophageal Reflux Disease (GERD) - Viral Upper Respiratory Infection Patient Instructions - Continue taking omeprazole once a day. - Take the prescribed cough medicine, tell some [id number]-[id number] one teaspoon at night, and a second dose 12 hours later if needed. - Ensure omeprazole is taken on an empty stomach for optimal efficacy. - Monitor symptoms; if GERD symptoms are well-controlled, consider trial cessation of omeprazole after discussion. Review of Systems - General: No fever no chills - Neurological: No headaches no dizziness - Ear nose throat: No sore throat no hearing difficulty no ear pain - Cardiovascular: No syncope, no chest pain, no palpitations - Gastrointestinal: No nausea vomiting or diarrhea - Endocrine: No polyuria polydipsia no heat intolerance - Genitourinary: No dysuria , no blood in urine Physical Exam General: No acute distress HEENT: no acute findings Neck: Supple Respiratory system: Able to talk in full sentences, no audible wheeze Cardiovascular: S1-S2 regular in rate and rhythm Gastrointestinal: No pain Extremities: No new findings 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 Father No problems noted. Social History Housing: House Patient Tobacco Use Status: Never used Tobacco e-Cigarette/Vaping Use: Never Used service: No Current occupational status: unemployed Cognitive needs: No Hearing needs: No Vision needs: No Female Reproductive History Menstrual Age of Menarche: 13 Questionnaire PHQ-9 Over the last 2 weeks, how often have you been bothered by any of the following problems? 1. Little interest or pleasure in doing things: not at all 2. Feeling down, depressed, or hopeless: not at all 3. Trouble falling or staying asleep, or sleeping too much: not at all 4. Feeling tired or having little energy: not at all 5. Poor appetite or overeating: not at all 6. Feeling bad about yourself - or that you are a failure or have let yourself or your family down: not at all 7. Trouble concentrating on things, such as reading the newspaper or watching television: not at all 8. Moving or speaking so slowly that other people could have noticed. Or the opposite - being so fidgety or restless that you have been moving around a lot more than usual: not at all 9. Thoughts that you would be better off or of hurting yourself in some way: not at all Total score: 0 Depression Screening Interpretation: Negative Depression Screening Done: Yes 24019 - PHQ-9 Billing: Yes Source: Developed by Drs. Darrel Addison, Katarina Peguero, Wilber Casillas and colleagues, with an educational aditya from [employer]. Thrive Questionnaire Date Thrive assessed: 05/26/24 I am a: Patient What is your living situation today?: I have a steady place to live Within the past 12 months, did the food you bought not last and you didn't have the money to get more?: Never true Within the past 12 months, did you worry whether your food would run out before you got money to buy more?: Never true Do you have trouble paying for medicines?: No Do you have trouble getting transportation to medical appointments?: No Do you have trouble paying your heating and electricity bill?: No Do you have trouble taking care of your child, family member or friend?: No Do you have trouble with day-to-day activities such as bathing, preparing meals, shopping, managing finances, etc.?: No Are you currently unemployed and looking for a job?: No Are you interested in more education?: No Please select the resources that you would like help with: None Currently or been in a relationship where the following occur: No concerns reported THRIVE Score: 0 AUDIT C Alcohol Use Questionnaire (AUDIT-C) 1. How often do you have a drink containing alcohol?: Never Total Score: 0 FABIAN-7 AMB Questionnaire FABIAN-7 Date FABIAN - 7 assessed: 03/03/24 Feeling nervous, anxious, or on edge: 0 = Not at all Not being able to stop or control worryin = Not at all Worrying too much about different things: 0 = Not at all Trouble relaxin = Not at all Being so restless that it is hard to sit still: 0 = Not at all Becoming easily annoyed or irritable: 0 = Not at all Feeling afraid as if something awful might happen: 0 = Not at all Total FABIAN-7 score (0-4 normal; 5-9 mild; 10-14 moderate; 15-21 severe): 0 Source: Developed by Drs. Darrel Addison, Katarina Peguero, Wilber Casillas and colleagues, with an educational aditya from [employer]. Physical exam (Primary Care) Vital Signs: Last Vital Signs Pulse 84 10/13/24 09:22 Resp 18 10/13/24 09:22 BP 106/84 10/13/24 09:22 Pulse Ox 99 10/13/24 09:22 Oxygen Delivery Method Room Air 10/13/24 09:22 BMI result Body Mass Index 34.6 Tobacco/Smoking Status: Tobacco use Status Tobacco use date assessed 05/26/24 10/13/24 09:26 Patient Tobacco Use Status Never used Tobacco 10/13/24 09:26 e-Cigarette/Vaping Use Never Used 10/13/24 09:26 PHQ-9: PHQ-9 Score PHQ-9: Total score 0 10/13/24 09:26 Depression Screening Interpretation: Negative Thrive Assessment: Date of Thrive Assessment Date Thrive assessed 05/26/24 10/13/24 09:26 Currently or been in a relationship where the following occur: No concerns reported Coding Level of Care Code Est Pt Level 3 (22455) Diagnoses Chronic GERD K21.9 Dry cough R05.8 Additional Codes PHQ-9 - 55751 - PHQ-9 Billing: Yes ([id number]) Assessment & Plan Assessment & Plan (1) Chronic GERD: Code(s): K21.9 - Gastro-esophageal reflux disease without esophagitis Category: Medical (2) Dry cough: Code(s): R05.8 - Other specified cough Category: Medical Plan History - The patient is a 33-year-old female presenting with symptoms related to viral upper respiratory infection. - Over the past week, the patient experienced symptoms indicative of a viral upper respiratory infection, characterized by a nocturnal dry cough and throat irritation. - The cough is described as improving gradually without the use of cough medication. - The patient has a history of GERD for which she is taking omeprazole daily. She occasionally forgets her dosage but reports only minor throat discomfort without significant reflux or heartburn recurrence. - She feels better as the week progresses, indicating recovery. Problem List - Gastroesophageal Reflux Disease (GERD) - Viral Upper Respiratory Infection Patient Instructions - Continue taking omeprazole once a day. - Take the prescribed cough medicine, tell some rwnu-boz-hqydwmz one teaspoon at night, and a second dose 12 hours later if needed. - Ensure omeprazole is taken on an empty stomach for optimal efficacy. - Monitor symptoms; if GERD symptoms are well-controlled, consider trial cessation of omeprazole after discussion.
--- OUTSIDE RECORDS SUMMARY | 2024-10-13 09:37 | XMS_ITS | Clinical Summary ---
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 Name Role Phone Unavailable Primary Care Provider Unavailabl e Social History Tobacco Use Types Packs/Day Years Used Date Smoking Tobacco: Never Assessed Comments Unknown Sex and Gender Information Value Date Recorded Sex Assigned at Not on file Legal Sex Female 8:25 AM EST Gender Identity Not on file Sexual Orientation Not on file Plan of Treatment Health Maintenance Due Date Last Done Comments DTaP,Tdap,and Td Vaccines (1 - Tdap) 12/14/2010 Hepatitis B Vaccines (1 of 3 - 19+ 3-dose series) 12/14/2010 Cervical Cancer Screening: P ap Smear 12/14/2012 Depression Screening 06/07/2022 HIV Screening 06/07/2022 Hepatitis C Screening 06/07/2022 Social Influencers of Health Screening 06/07/2022 COVID-19 Vaccine ( - 2023-2 5 season) 2024 Influenza Vaccine (Season Ended) 2025 HIB Vaccines Aged Out No longer eligi ble based on patient's age to complete this topic HPV Vaccines Aged Out No longer eligi ble based on patient's age to complete this topic Hepatitis A Vaccines Aged Out No long er eligible based on patient's age to complete this topic IPV Vaccines Aged Out No longer eligi ble based on patient's age to complete this topic MMR Vaccines Aged Out No longer eligi ble based on patient's age to complete this topic Meningococcal ACWY Vaccine Aged Out N o longer eligible based on patient's age to complete this topic Meningococcal B Vaccine Aged Out No l onger eligible based on patient's age to complete this topic Pneumococcal Vaccine: Pediat rics (0 to 5 Years) and At-Risk Patients (6 to 64 Years) Aged Out No longer eligible b ased on patient's age to complete this topic RSV Immunization Patients Un deep 20 months Aged Out No longer eligible b ased on patient's age to complete this topic Varicella Vaccines Aged Out No longer eligible based on patient's age to complete this topic
== END 2024-10-13 10:40 | disposition home or self-care (01) ==
LOC: HO.HMCC 09:16
PROVIDERS: PCP Internal Medicine; Visit Provider Internal Medicine
DX: K21.9 Gastro-esophageal reflux disease without esophagitis (principal); R05.8 Other specified cough

== ENCOUNTER → 2024-10-13 09:16 | Outpatient (BNVA) | payer OTHER, SELFPAY | PROVIDERS: PCP Internal Medicine; Visit Provider Internal Medicine | DX: K21.9 Gastro-esophageal reflux disease without esophagitis (principal); R05.8 Other specified cough | CPT/HCPCS: 96127; 99212 ==

== ENCOUNTER 2025-03-09 13:13 | Outpatient (AMB) | payer OTHER, SELFPAY ==
[2025-03-09 13:20] VITALS: BP 110/64; PULSE 81; O2SAT 99; BMI 33.5
--- NOTE | 2025-03-09 13:20 | A.OFFPC_ITS ---
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 Required: No Allergies No Known Allergies Allergy (Verified 03/09/25 13:20) Medication List - Last Reconciled 03/09/25 by Abdoul Nam MD cholecalciferol (vitamin D3) 25 mcg PO DAILY 90 days omeprazole 20 mg PO DAILY Tobacco use date assessed: 03/09/25 Dental Screening Dental Screen Date: 03/09/25 Did you have a dental visit in the last 12 months?: Yes Did you have a dental problem in the last 6 months where you did not have access to dental care?: No Was dental information given to patient?: Patient has dentist HPI annual visit HPI Details History of Present Illness The patient is a 34-year-old female presenting with breast pain and for an annual physical examination. Breast pain: - She previously had a biopsy in 2022 in dicating a lump, but reports no significant changes. - Pain is noted as coming and going. - No lumps detected by the patient [facility], indicating pain localized but not associated with any palpable mass. Heartburn: - Chronic condition for which the patien t has been prescribed omeprazole. - Heartburn symptoms occasionally exacer bated by diet, particularly with the consumption of coffee. . Low vitamin D levels: - Previously low vitamin D levels noted in test results from last year. - The patient has been advised to contin ue supplementation. Health Maintenance - Discussion of continued use of vitamin D supplements due to previous low levels. - Tetanus vaccination discussed with rec ommendation to obtain an upcoming tetanus booster from the pharmacy. - OBGYN at [facility] visit s up-to-date Patient Instructions - Continue taking vitamin D supplements as previously advised. - Follow up for blood tests requiring fa sting; do not eat for 10 hours prior. - Acquire tetanus booster from the pharm acy as discussed. - Monitor diet-related symptoms, noting occurrences and associated foods. Follow-up 1 year Review of Systems - General: No fever no chills - Neurological: No headaches no dizzin ess - Ear nose throat: No sore throat no hearing difficulty no ear pain - Cardiovascular: No syncope, no chest pain, no palpitations - Gastrointestinal: No nausea vomiting or diarrhea - Endocrine: No polyuria polydipsia no heat intolerance - Genitourinary: No dysuria - Skin: No new complaints Physical Exam General: Cooperative, healthy appearing, comfortable, no acute distress Orientation: Patient oriented x3 Limitations: None Head: Normal to inspection Ears: Within normal limit visually Nose: Normal external nose present Face and sinus: Normal facial exam Eyes: Appearance normal, extraocular movement intact pupils reactive Neck: Normal visual inspection and supple Respiratory: Normal respiratory effort and able to speak in complete sentences. Clear to auscultation, no stridor Cardiovascular: S1 and S2 RRR Breast exam benign, no pain with examination GI: Normal to inspection. Soft to palpation and nontender Skin: Turgor normal, no acute findings Neuro: Patient oriented x3, motor sensory intact, balance intact, tandem pass Extremities: Normal to inspection, full range of motion [facility] History History of tubal ligation (01/2023) Family History Mother No problems noted. Father No problems noted. Social History Housing: House Patient Tobacco Use Status: Never used Tobacco e-Cigarette/Vaping Use: Never Used service: No Current occupational status: unemployed Cognitive needs: No Hearing needs: No Vision needs: No Female Reproductive History Menstrual Age of Menarche: 13 Questionnaire Thrive Questionnaire Date Thrive assessed: 10/13/24 I am a: Patient What is your living situation today?: I have a steady place to live Within the past 12 months, did the food you bought not last and you didn't have the money to get more?: Never true Within the past 12 months, did you worry whether your food would run out before you got money to buy more?: Never true Do you have trouble paying for medicines?: No Do you have trouble getting transportation to medical appointments?: No Do you have trouble paying your heating and electricity bill?: No Do you have trouble taking care of your child, family member or friend?: No Do you have trouble with day-to-day activities such as bathing, preparing meals, shopping, managing finances, etc.?: No Are you currently unemployed and looking for a job?: No Are you interested in more education?: No Please select the resources that you would like help with: None Currently or been in a relationship where the following occur: No concerns reported THRIVE Score: 0 FABIAN-7 AMB Questionnaire FABIAN-7 Date FABIAN - 7 assessed: 03/09/25 Feeling nervous, anxious, or on edge: 0 = Not at all Not being able to stop or control worryin = Not at all Worrying too much about different things: 0 = Not at all Trouble relaxin = Not at all Being so restless that it is hard to sit still: 0 = Not at all Becoming easily annoyed or irritable: 0 = Not at all Feeling afraid as if something awful might happen: 0 = Not at all Total FABIAN-7 score (0-4 normal; 5-9 mild; 10-14 moderate; 15-21 severe): 0 Source: Developed by Drs. Darrel Addison, Katarina Peguero, Wilber Casillas and colleagues, with an educational aditya from [employer]. FABIAN-7 Assessment Billing FABIAN-7 Assessment Tool: FABIAN-7 Assessment 20531 Physical exam (Primary Care) Vital Signs: Last Vital Signs Pulse 81 03/09/25 13:20 BP 110/64 03/09/25 13:20 Pulse Ox 99 03/09/25 13:20 BMI result Body Mass Index 33.5 Tobacco/Smoking Status: Tobacco use Status Tobacco use date assessed 03/09/25 03/09/25 13:20 Patient Tobacco Use Status Never used Tobacco 03/09/25 13:20 e-Cigarette/Vaping Use Never Used 03/09/25 13:20 Thrive Assessment: Date of Thrive Assessment Date Thrive assessed 10/13/24 03/09/25 13:20 Currently or been in a relationship where the following occur: No concerns reported Coding Level of Care Code Est Pt Level 3 (43224) Est Pt Prev Care 18-39y(39772) Diagnoses Encounter for general adult medical examination with abnormal findings Z00.01 Chronic GERD K21.9 Breast pain, left N64.4 Class 1 obesity due to excess calories without serious comorbidity with body mass index (BMI) of 33.0 to 33.9 in adult E66.811; E66.09; Z68.33 Obesity classification: adult class 1 (BMI 30 - 34.9) Serious obesity comorbidity presence: without serious comorbidity Body mass index: BMI 33.0-33.9 Vitamin D deficiency E55.9 Additional Codes FABIAN-7 Assessment Billing - FABIAN-7 Assessment Tool: FABIAN-7 Assessment 84966 ([id number]) Assessment & Plan Assessment & Plan (1) Encounter for general adult medical examination with abnormal findings: Code(s): Z00.01 - Encounter for general adult medical examination with abnormal findings Category: Medical (2) Chronic GERD: Code(s): K21.9 - Gastro-esophageal reflux disease without esophagitis Category: Medical (3) Breast pain, left: Code(s): N64.4 - Mastodynia Category: Medical (4) Obesity due to excess calories: Code(s): E66.09 - Other obesity due to excess calories Category: Medical Qualifiers: Obesity classification: adult class 1 (BMI 30 - 34.9) Serious obesity comorbidity presence: without serious comorbidity Body mass index: BMI 33.0- 33.9 Qualified Code(s): E66.811 - Obesity, class 1; E66.09 - Other obesity due to excess calories; Z68.33 - Body mass index [BMI] 33.0-33.9, adult (5) Vitamin D deficiency: Code(s): E55.9 - Vitamin D deficiency, unspecified Category: Medical Plan History of Present Illness The patient is a 34-year-old female presenting with breast pain and for an annual physical examination. Breast pain: - She previously had a biopsy in 2022 indicating a lump, but reports no significant changes. - Pain is noted as coming and going. - No lumps detected by the patient currently, indicating pain localized but not associated with any palpable mass. Heartburn: - Chronic condition for which the patient has been prescribed omeprazole. - Heartburn symptoms occasionally exacerbated by diet, particularly with the consumption of coffee. . Low vitamin D levels: - Previously low vitamin D levels noted in test results from last year. - The patient has been advised to continue supplementation. Health Maintenance - Discussion of continued use of vitamin D supplements due to previous low levels. - Tetanus vaccination discussed with recommendation to obtain an upcoming tetanus booster from the pharmacy. - OBGYN at [facility] visits up-to-date Patient Instructions - Continue taking vitamin D supplements as previously advised. - Follow up for blood tests requiring fasting; do not eat for 10 hours prior. - Acquire tetanus booster from the pharmacy as discussed. - Monitor diet-related symptoms, noting occurrences and associated foods. Follow-up 1 year Orders: Orders Complete Blood Count Auto Diff Today E55.9 - Vitamin D deficiency, unspecified, E66.09 - Other obesity due to excess calories, E66.811 - Obesity, class 1, K21.9 - Gastro-esophageal reflux disease without esophagitis, N64.4 - Mastodynia, Z00.01 - Encounter for general adult medical examination with abnormal findings, Z68.33 - Body mass index [BMI] 33.0-33.9, adult Comprehensive [place]. Panel Fast Today E55.9 - Vitamin D deficiency, unspecified, E66.09 - Other obesity due to excess calories, E66.811 - Obesity, class 1, K21.9 - Gastro-esophageal reflux disease without esophagitis, N64.4 - Mastodynia, Z00.01 - Encounter for general adult medical examination with abnormal findings, Z68.33 - Body mass index [BMI] 33.0-33.9, adult Lipid Panel Today E55.9 - Vitamin D deficiency, unspecified, E66.09 - Other obesity due to excess calories, E66.811 - Obesity, class 1, K21.9 - Gastro- esophageal reflux disease without esophagitis, N64.4 - Mastodynia, Z00.01 - Encounter for general adult medical examination with abnormal findings, Z68.33 - Body mass index [BMI] 33.0-33.9, adult TSH reflex Free T4 Today E55.9 - Vitamin D deficiency, unspecified, E66.09 - Other obesity due to excess calories, E66.811 - Obesity, class 1, K21.9 - Gastro-esophageal reflux disease without esophagitis, N64.4 - Mastodynia, Z00.01 - Encounter for general adult medical examination with abnormal findings, Z68.33 - Body mass index [BMI] 33.0-33.9, adult Vitamin D 25-OH (D2 and D3) Today E55.9 - Vitamin D deficiency, unspecified, E66.09 - Other obesity due to excess calories, E66.811 - Obesity, class 1, K21.9 - Gastro-esophageal reflux disease without esophagitis, N64.4 - Mastodynia, Z00.01 - Encounter for general adult medical examination with abnormal findings, Z68.33 - Body mass index [BMI] 33.0-33.9, adult Medications: New cholecalciferol (vitamin D3) 25 mcg PO DAILY 90 caps 1RF 90 days
--- OUTSIDE RECORDS SUMMARY | 2025-03-09 13:27 | XMS_ITS | Clinical Summary ---
Author Organization [facility] Address [address] [place] [address] Care Team Providers Care Analyst Programmer Name Role Phone Unavailable Primary Care Provider [...] Screening: P ap Smear 12/14/2012 Depression Screening 07/05/2024 COVID-19 Vaccine ( - 2023-2 5 season) 2025 Influenza Vaccine (#1) 2025 HIB Vaccines Aged Out No longer [...] 5 Years) and At-Risk Patients (6 to 49 Years) Aged Out No longer eligible b ased on patient's age to complete this topic RSV Immunization Patients Un deep 20 months Aged Out No longer eligible b ased on patient's age to complete this topic Varicella Vaccines Aged Out No longer eligible based on patient's age to complete this topic
== END 2025-03-09 13:44 | disposition home or self-care (01) ==
LOC: HO.HMCC 13:14
PROVIDERS: PCP Internal Medicine; Visit Provider Internal Medicine
DX: Z00.01 Encounter for general adult medical examination with abnormal findings (principal); K21.9 Gastro-esophageal reflux disease without esophagitis; E66.811 Obesity, class 1; Z68.33 Body mass index [BMI] 33.0-33.9, adult; N64.4 Mastodynia; E66.09 Other obesity due to excess calories; E55.9 Vitamin D deficiency, unspecified

== ENCOUNTER → 2025-03-09 13:13 | Outpatient (BNVA) | payer OTHER, SELFPAY | PROVIDERS: PCP Internal Medicine; Visit Provider Internal Medicine | DX: Z00.01 Encounter for general adult medical examination with abnormal findings (principal); R12 Heartburn; E55.9 Vitamin D deficiency, unspecified; K21.9 Gastro-esophageal reflux disease without esophagitis; N64.4 Mastodynia; E66.811 Obesity, class 1; Z68.33 Body mass index [BMI] 33.0-33.9, adult | CPT/HCPCS: 96127; 99212; 99395 ==

== ENCOUNTER 2025-03-22 08:39 | Outpatient (REF) | payer OTHER, SELFPAY ==
--- OUTSIDE RECORDS SUMMARY | 2025-03-22 09:54 | XMS_ITS | Clinical Summary ---
Author Organization [facility] Address [address] [place] [address] Care Team Providers Care Emergency Medical Tech Name Role Phone Unavailable Primary Care Provider [...]
[2025-03-22 10:14] LABS: MANUAL DIFF FLAG NO
[2025-03-22 10:24] LABS: Hematocrit 44.4 % (37.0-47.0); Hemoglobin 14.5 g/dl (12.0-16.0); Imm Gran Abs Auto 0.01 X10*3/uL (0.00-0.03); Imm Gran Pct Auto 0.2 % (0.0-0.4); Lymphocytes Absolute Auto 2.3 X10*3/uL (1.2-4.9); Mean Corpuscular HGB Conc 32.7 g/dl (31.0-35.0); Mean Corpuscular Hemoglobin 28.0 pg (27.0-33.0); Mean Corpuscular Volume 85.7 fL (80.0-98.0); NRBC Abs Auto 0.000 X10*3/uL (0.0-0.012); NRBC Pct Auto 0.0 /100WBC (0.0-0.2); Platelet Count 233 X10*3/uL (160-400); Red Blood Count 5.18 X10*6/uL (4.20-5.50); White Blood Count 6.6 X10*3/uL (4.8-10.8)
[2025-03-22 10:53] LABS: Alanine Aminotransferase 19 U/L (0-31); Albumin Level 4.3 g/dL (3.5-5.0); Alkaline Phosphatase 54 U/L (39-117); Anion Gap 8 (12-20); Aspartate Amino Transferase 22 U/L (5-31); Blood Urea Nitrogen 14 mg/dL (9-16); Calcium 9.1 mg/dL (8.4-10.2); Carbon Dioxide 27 mmol/L (22-29); Chloride 109 mmol/L (96-108); Cholesterol 187 mg/dL (<200); Estimated Glomerular Filt Rate > 60; HDL Cholesterol 37 mg/dL (>40); Potassium 4.8 mmol/L (3.3-5.1); Sodium 139 mmol/L (135-145); Total Protein 7.3 g/dL (6.5-8.0); Triglycerides 114 mg/dL (<150)
[2025-03-30 14:47] LABS: Vitamin D 25-OH, D2 <4 ng/mL; Vitamin D 25-OH, D3 32 ng/mL; Vitamin D 25-OH, Total 32 ng/mL (30-100)
== END 2025-03-22 08:40 | disposition home or self-care (01) ==
LOC: HO.HMGCLDS 08:39
PROVIDERS: PCP Internal Medicine; Visit Provider Internal Medicine
DX: Z00.01 Encounter for general adult medical examination with abnormal findings (principal); K21.9 Gastro-esophageal reflux disease without esophagitis; N64.4 Mastodynia; E66.811 Obesity, class 1; E55.9 Vitamin D deficiency, unspecified; Z68.33 Body mass index [BMI] 33.0-33.9, adult
CPT/HCPCS: 36415; 80053; 80061; 82306; 84443; 85025